=== PATIENT | female | born 1950 | race Hispanic/Latino ===

== ENCOUNTER 2017-10-01 02:34 | Inpatient (IN) | payer MEDICARE ==
[2017-10-01 02:34] VITALS: BMI 32.3
--- NOTE | 2017-10-01 03:59 | ED PDOC ---
HPI: Chest Pain Time Seen by Provider: 10/01/17 03:25 Chief Complaint (Nursing): Chest Pain Chief Complaint (Provider): Chest Pain History Per: Patient History/Exam Limitations: no limitations Onset/Duration Of Symptoms: Days (7 days ago) Current Symptoms Are (Timing): Still Present Additional Complaint(s): 67 y/o female with a past medical history of hypertension and hyperlipidemia, brought in by EMS, presents to the ED complaining of left-sided chest pain, with onset of one week. Patient denies of any vomiting, diarrhea, social or surgical history. PCP: Edy Meyer Past Medical History Reviewed: Historical Data, Nursing Documentation, Vital Signs Vital Signs: Last Vital Signs Temp 98.0 F 10/03/17 07:58 Pulse 76 10/03/17 07:58 Resp 18 10/03/17 07:58 BP 125/76 10/03/17 07:58 Pulse Ox 96 10/03/17 07:58 - Medical History PMH: HTN, Hypercholesterolemia, Hyperlipidemia Denies: Diabetes, Chronic Kidney Disease - Surgical History Surgical History: (x3) - Family History Family History: States: Unknown Family Hx - Home Medications Home Medications: Ambulatory Orders Medication Instructions Recorded Atorvastatin [Lipitor] 20 mg PO HS #30 tab 12/21/16 amLODIPine [Norvasc] 5 mg PO DAILY tab 12/21/16 Telmisartan [Micardis] 80 mg PO DAILY 10/01/17 - Allergies Allergies/Adverse Reactions: Allergies Allergy/AdvReac Type Severity Reaction Status Date / Time aspirin Allergy RASH Verified 10/01/17 02:44 codeine Allergy DIZZINESS Verified 10/01/17 02:44 doxycycline Allergy RASH Verified 10/01/17 02:44 VIPIN Risk Score for UA/NSTEMI - VIPIN Risk Score Age > 64: YES 3 or more CAD Risk Factors: NO Known CAD (Stenosis greater than 50%): NO Aspirin use in past 7 days: YES Severe Angina: NO EKG ST changes greater than 0.5mm: NO Positive Cardiac Marker: NO VIPIN Score: 2 Risk %: 8% Review of Systems ROS Statement: Except As Marked, All Systems Reviewed And Found Negative Constitutional: Negative for: Fever Gastrointestinal: Negative for: Vomiting, Diarrhea Physical Exam - Reviewed Nursing Documentation Reviewed: Yes Vital Signs Reviewed: Yes - Physical Exam Appears: Positive for: Non-toxic, No Acute Distress Head Exam: Positive for: ATRAUMATIC, NORMAL INSPECTION, NORMOCEPHALIC Skin: Positive for: Normal Color, Warm, DRY Eye Exam: Positive for: EOMI, Normal appearance, PERRL ENT: Positive for: Normal ENT Inspection Neck: Positive for: Normal, Painless ROM Cardiovascular/Chest: Positive for: Regular Rate, Rhythm. Negative for: Murmur Respiratory: Positive for: Normal Breath Sounds. Negative for: Respiratory Distress Gastrointestinal/Abdominal: Positive for: Normal Exam, Soft. Negative for: Tenderness Back: Positive for: Normal Inspection Extremity: Positive for: Normal ROM. Negative for: Pedal Edema, Deformity Neurologic/Psych: Positive for: Alert, Oriented. Negative for: Motor/Sensory Deficits - Laboratory Results Result Diagrams: 10/02/17 14:10 10/02/17 14:10 - ECG O2 Sat by Pulse Oximetry: 99 (RA) Pulse Ox Interpretation: Normal Medical Decision Making Medical Decision Making: Time: --03:47 Impression: --67 y/o female with chest pain Plan: --Labs --Chest X-ray --Troponin Reassess --5:55 provider is waiting on approval from Dr. Meyer to admit patient. Aspirin 325mg PO --7:00 Patient signed out to Dr. Peters pending reaching Dr. Meyer for admission. Scribe Attestation: Documented by Wade Moreau acting as a scribe for oJhn Mayo MD. Provider Attestation: All medical record entries made by the Scribe were at my direction and personally dictated by me. I have reviewed the chart and agree that the record accurately reflects my personal performance of the history, physical exam, medical decision making, and the department course for this patient. I have also personally directed, reviewed, and agree with the discharge instructions and disposition. Disposition - Clinical Impression Clinical Impression: Chest pain - Patient ED Disposition Is Patient to be Admitted: Transfer of Care Discussed With : Candido Peters Doctor Will See Patient In The: ED - Disposition Disposition: Transfer of Care Disposition Time: 07:00 Condition: FAIR Patient Signed Over To: Candido Peters
[2017-10-01 04:42] LABS: BASO # 0.1 K/uL (0.0-0.2); BASO % 1.3 % (0.0-2.0); EOS # 0.3 K/uL (0.0-0.7); EOS % 4.4 % (0.0-4.0); LYMPH % 29.4 % (20.0-40.0); MEAN CELL VOLUME 84.8 fl (81.0-99.0); MEAN CORPUSCULAR HEMOGLOBIN 28.4 pg (27.0-31.0); MEAN CORPUSCULAR HGB CONC 33.5 g/dL (33.0-37.0); MEAN PLATELET VOLUME 8.1 fl (7.2-11.7); MONO # 0.4 K/uL (0.0-0.8); MONO % 5.2 % (0.0-10.0); NEUT # 4.2 K/uL (1.8-7.0); NEUT % 59.7 % (50.0-75.0); NRBC % 0.1 % (0.0-0.0); RED CELL DISTRIBUTION WIDTH 13.4 % (11.5-14.5)
[2017-10-01 04:46] LABS: ALB/GLOB RATIO 1.1 (1.0-2.1); ALKALINE PHOSPHATASE 103 U/L (38-126); ALT/SGPT 37 U/L (9-52); AST/SGOT 26 U/L (14-36); BILIRUBIN,TOTAL 0.4 mg/dl (0.2-1.3); BLOOD UREA NITROGEN 13 mg/dl (7-17); CALCIUM 9.9 mg/dL (8.4-10.2); CARBON DIOXIDE 28 mmol/L (22-30); CHLORIDE 106 mmol/L (98-107); GFR AFRICAN-AMERICAN > 60; GLUCOSE,RANDOM 128 mg/dL (65-105); POTASSIUM 4.1 MMOL/L (3.6-5.0); SODIUM 141 mmol/l (132-148); TOTAL PROTEIN 9.2 G/DL (6.3-8.2)
--- NOTE | 2017-10-01 07:52 | ED PDOC ---
- Laboratory Results Result Diagrams: 10/01/17 04:33 10/01/17 04:33 - ECG O2 Sat by Pulse Oximetry: 99 (RA) Medical Decision Making Medical Decision Making: Patient was signed out to me by Dr. Mayo at 7:00AM. Pending call back from Dr. Meyer. Progress note: Case discussed with Dr. Meyer who agrees upon admission for telemetry observation to rule out ACS. Scribe Attestation: Documented by Leticia Washington, acting as a scribe for Candido Peters MD Provider Scribe Attestation: All medical record entries made by the Scribe were at my direction and personally dictated by me. I have reviewed the chart and agree that the record accurately reflects my personal performance of the history, physical exam, medical decision making, and the department course for this patient. I have also personally directed, reviewed, and agree with the discharge instructions and disposition. Disposition Counseled Patient/Family Regarding: Studies Performed, Diagnosis - Clinical Impression Clinical Impression: Chest pain - POA Present On Arrival: None Core Measure Indicators: Chest Pain - Disposition Disposition: Hospitalized as Observation Patient Disposition Time: 07:30 Condition: FAIR
--- NOTE | 2017-10-01 09:05 | RAD ---
HISTORY: chest pain COMPARISON: 12/20/2016. FINDINGS: LUNGS: No active pulmonary disease. PLEURA: No significant pleural effusion identified, no pneumothorax apparent. CARDIOVASCULAR: No radiographic findings to suggest acute or significant cardiovascular disease. OSSEOUS STRUCTURES: No significant abnormalities. VISUALIZED UPPER ABDOMEN: Normal. OTHER FINDINGS: None. IMPRESSION: No active disease. No significant interval change compared to the prior examination(s).
[2017-10-01] MEDS ORDERED: Patient's Own Med (Telmisartan [Micardis] 80 mg) PO SCH (13:30)
--- NOTE | 2017-10-01 14:24 | CP.PCM.HP ---
History of Present Illness - History of Present Illness History of Present Illness: 67 y/o female Bangladeshi speaking with a past medical history of hypertension and hyperlipidemia, brought in by EMS, presents to the ED complaining of left-sided chest pain, with sudden onset the day of admission. The pain is sharp, precordial with no irradiation. No V/N no abdominal pain. Present on Admission - Present on Admission Any Indicators Present on Admission: No Review of Systems - Constitutional Constitutional: As Per HPI - EENT Eyes: As Per HPI - Cardiovascular Cardiovascular: As Per HPI - Respiratory Respiratory: As Per HPI - Gastrointestinal Gastrointestinal: As Per HPI - Musculoskeletal Musculoskeletal: As Per HPI - Integumentary Integumentary: As Per HPI - Neurological Neurological: As Per HPI - Psychiatric Psychiatric: As Per HPI Past Patient History - Past Medical History & Family History Past Medical History?: Yes - Past Social History Smoking Status: Former Smoker - CARDIAC Hx Cardiac Disorders: Yes Hx Hypercholesterolemia: Yes Hx Hypertension: Yes Other/Comment: hyperlipidemia - PULMONARY Hx Respiratory Disorders: No - NEUROLOGICAL Hx Neurological Disorder: No - HEENT Hx HEENT Problems: No - RENAL Hx Chronic Kidney Disease: No - ENDOCRINE/METABOLIC Hx Endocrine Disorders: No - HEMATOLOGICAL/ONCOLOGICAL Hx Blood Disorders: No - INTEGUMENTARY Hx Dermatological Problems: No - MUSCULOSKELETAL/RHEUMATOLOGICAL Hx Falls: No - GASTROINTESTINAL Hx Gastrointestinal Disorders: No - GENITOURINARY/GYNECOLOGICAL Hx Genitourinary Disorders: No - PSYCHIATRIC Hx Psychophysiologic Disorder: No Hx Substance Use: No - SURGICAL HISTORY Hx Surgeries: Yes Hx Section: Yes (x3) Other/Comment: Root canal surgery - ANESTHESIA Hx Anesthesia: Yes Hx Anesthesia Reactions: No Hx Malignant Hyperthermia: No Has any member of the family had a problem w/ anesthesia?: No Meds Allergies/Adverse Reactions: Allergies Allergy/AdvReac Type Severity Reaction Status Date / Time aspirin Allergy RASH Verified 10/01/17 02:44 codeine Allergy DIZZINESS Verified 10/01/17 02:44 doxycycline Allergy RASH Verified 10/01/17 02:44 Physical Exam - Constitutional Appears: Non-toxic - Head Exam Head Exam: ATRAUMATIC, NORMAL INSPECTION, NORMOCEPHALIC - Eye Exam Eye Exam: Normal appearance Pupil Exam: PERRL - ENT Exam ENT Exam: Mucous Membranes Moist - Neck Exam Neck exam: Positive for: Full Rom, Normal Inspection - Respiratory Exam Respiratory Exam: Clear to Auscultation Bilateral - Cardiovascular Exam Cardiovascular Exam: REGULAR RHYTHM, +S1, +S2 - GI/Abdominal Exam GI & Abdominal Exam: Normal Bowel Sounds - Back Exam Back exam: NORMAL INSPECTION - Neurological Exam Neurological exam: Alert, CN II-XII Intact, Normal Gait, Oriented x3, Reflexes Normal - Psychiatric Exam Psychiatric exam: Normal Affect - Skin Skin Exam: Normal Color Results - Vital Signs Recent Vital Signs: Last Vital Signs Temp 97.9 F 10/01/17 12:09 Pulse 79 10/01/17 12:09 Resp 18 10/01/17 12:09 BP 133/85 10/01/17 12:09 Pulse Ox 96 10/01/17 12:09 - Labs Result Diagrams: 10/01/17 04:33 10/01/17 04:33 Labs: Laboratory Results - last 24 hr 10/01/17 10/01/17 04:33 04:33 WBC 7.0 RBC 5.07 Hgb 14.4 Hct 43.0 MCV 84.8 MCH 28.4 MCHC 33.5 RDW 13.4 Plt Count 354 MPV 8.1 Neut % (Auto) 59.7 Lymph % (Auto) 29.4 Shelby % (Auto) 5.2 Eos % (Auto) 4.4 H Baso % (Auto) 1.3 Neut # 4.2 Lymph # 2.0 Shelby # 0.4 Eos # 0.3 Baso # 0.1 Sodium 141 Potassium 4.1 Chloride 106 Carbon Dioxide 28 Anion Gap 11 BUN 13 Creatinine 0.6 L Est GFR ( Amer) > 60 Est GFR (Non-Af Amer) > 60 Random Glucose 128 H Calcium 9.9 Total Bilirubin 0.4 AST 26 ALT 37 Alkaline Phosphatase 103 Troponin I < 0.0120 Total Protein 9.2 H Albumin 4.8 Globulin 4.3 H Albumin/Globulin Ratio 1.1 Assessment & Plan (1) Costochondritis Status: Acute (2) Chest pain Status: Acute (3) Hypercholesteremia Status: Chronic (4) Hypertensive cardiovascular disease Status: Chronic - Assessment and Plan (Free Text) Plan: As per orders Patient with cardiac risk factor will follow w/u and cardiac consult.
--- NOTE | 2017-10-01 15:09 | CP.PCM.CON ---
History of Present Illness - History of Present Illness History of Present Illness: Consultation for evaluation of chest pain HPI: Review of Systems - Review of Systems Systems not reviewed;Unavailable: Acuity of Condition - Constitutional Constitutional: As Per HPI - EENT Eyes: As Per HPI Ears: As Per HPI Nose/Mouth/Throat: As Per HPI - Breasts Breasts: As Per HPI - Cardiovascular Cardiovascular: As Per HPI, Chest Pain - Respiratory Respiratory: As Per HPI - Gastrointestinal Gastrointestinal: As Per HPI - Genitourinary Genitourinary: As Per HPI - Reproductive: Female Reproductive:Female: As Per HPI - Menstruation Menstruation: As Per HPI - Musculoskeletal Musculoskeletal: As Per HPI - Integumentary Integumentary: As Per HPI - Neurological Neurological: As Per HPI - Psychiatric Psychiatric: As Per HPI - Endocrine Endocrine: As Per HPI - Hematologic/Lymphatic Hematologic: As Per HPI Past Patient History - Past Medical History & Family History Past Medical History?: Yes - Past Social History Smoking Status: Former Smoker - CARDIAC Hx Cardiac Disorders: Yes Hx Hypercholesterolemia: Yes Hx Hypertension: Yes Other/Comment: hyperlipidemia - PULMONARY Hx Respiratory Disorders: No - NEUROLOGICAL Hx Neurological Disorder: No - HEENT Hx HEENT Problems: No - RENAL Hx Chronic Kidney Disease: No - ENDOCRINE/METABOLIC Hx Endocrine Disorders: No - HEMATOLOGICAL/ONCOLOGICAL Hx Blood Disorders: No - INTEGUMENTARY Hx Dermatological Problems: No - MUSCULOSKELETAL/RHEUMATOLOGICAL Hx Falls: No - GASTROINTESTINAL Hx Gastrointestinal Disorders: No - GENITOURINARY/GYNECOLOGICAL Hx Genitourinary Disorders: No - PSYCHIATRIC Hx Psychophysiologic Disorder: No Hx Substance Use: No - SURGICAL HISTORY Hx Surgeries: Yes Hx Section: Yes (x3) Other/Comment: Root canal surgery - ANESTHESIA Hx Anesthesia: Yes Hx Anesthesia Reactions: No Hx Malignant Hyperthermia: No Has any member of the family had a problem w/ anesthesia?: No Meds Allergies/Adverse Reactions: Allergies Allergy/AdvReac Type Severity Reaction Status Date / Time aspirin Allergy RASH Verified 10/01/17 02:44 codeine Allergy DIZZINESS Verified 10/01/17 02:44 doxycycline Allergy RASH Verified 10/01/17 02:44 - Medications Medications: Current Medications Amlodipine Besylate (Norvasc) 5 mg PO DAILY [facility] Last Admin: 10/01/17 15:03 Dose: 5 mg Atorvastatin Calcium (Lipitor) 20 mg PO [facility] Home Med (Telmisartan [Micardis]) 80 mg PO DAILY [facility] Last Admin: 10/01/17 15:02 Dose: Not Given Losartan Potassium (Cozaar) 100 mg PO DAILY [facility] Physical Exam - Constitutional Appears: Well - Head Exam Head Exam: ATRAUMATIC, NORMAL INSPECTION, NORMOCEPHALIC - Eye Exam Eye Exam: EOMI, Normal appearance, PERRL Pupil Exam: NORMAL ACCOMODATION, PERRL - ENT Exam ENT Exam: Mucous Membranes Moist, Normal Exam - Neck Exam Neck exam: Positive for: Normal Inspection - Respiratory Exam Respiratory Exam: Clear to Auscultation Bilateral, NORMAL BREATHING PATTERN - Cardiovascular Exam Cardiovascular Exam: REGULAR RHYTHM, RRR, +S1, +S2, Systolic Murmur - GI/Abdominal Exam GI & Abdominal Exam: Normal Bowel Sounds, Soft. absent: Tenderness - Extremities Exam Extremities exam: Positive for: normal inspection - Back Exam Back exam: NORMAL INSPECTION - Neurological Exam Neurological exam: Alert, CN II-XII Intact, Normal Gait, Oriented x3, Reflexes Normal - Psychiatric Exam Psychiatric exam: Normal Affect, Normal Mood - Skin Skin Exam: Dry, Intact, Normal Color, Warm Results - Vital Signs Recent Vital Signs: Last Vital Signs Temp 97.9 F 10/01/17 12:09 Pulse 79 10/01/17 15:03 Resp 18 10/01/17 12:09 BP 133/85 10/01/17 15:03 Pulse Ox 96 10/01/17 12:09 - Labs Result Diagrams: 10/01/17 04:33 10/01/17 04:33 Labs: Laboratory Results - last 24 hr 10/01/17 10/01/17 04:33 04:33 WBC 7.0 RBC 5.07 Hgb 14.4 Hct 43.0 MCV 84.8 MCH 28.4 MCHC 33.5 RDW 13.4 Plt Count 354 MPV 8.1 Neut % (Auto) 59.7 Lymph % (Auto) 29.4 [place]rill % (Auto) 5.2 Eos % (Auto) 4.4 H Baso % (Auto) 1.3 Neut # 4.2 Lymph # 2.0 [place]rill # 0.4 Eos # 0.3 Baso # 0.1 Sodium 141 Potassium 4.1 Chloride 106 Carbon Dioxide 28 Anion Gap 11 BUN 13 Creatinine 0.6 L Est GFR ( Amer) > 60 Est GFR (Non-Af Amer) > 60 Random Glucose 128 H Calcium 9.9 Total Bilirubin 0.4 AST 26 ALT 37 Alkaline Phosphatase 103 Troponin I < 0.0120 Total Protein 9.2 H Albumin 4.8 Globulin 4.3 H Albumin/Globulin Ratio 1.1 Assessment & Plan (1) Chest pain Assessment and Plan: SHERYL plan for stress test in am if enzyes -ve x 3 monitor on telemtry Status: Acute (2) Costochondritis Status: Acute (3) Hypercholesteremia Assessment and Plan: cont lipitor Status: Chronic (4) Hypertensive cardiovascular disease Assessment and Plan: cont with norvasc and losartan Status: Chronic
[2017-10-01 15:34] LABS: BASO # 0.1 K/uL (0.0-0.2); BASO % 0.9 % (0.0-2.0); EOS # 0.3 K/uL (0.0-0.7); EOS % 4.1 % (0.0-4.0); HEMATOCRIT 41.2 % (34.0-47.0); LYMPH # 2.6 K/uL (1.0-4.3); LYMPH % 36.1 % (20.0-40.0); MEAN CELL VOLUME 84.9 fl (81.0-99.0); MEAN CORPUSCULAR HEMOGLOBIN 27.9 pg (27.0-31.0); MEAN CORPUSCULAR HGB CONC 32.9 g/dL (33.0-37.0); MONO # 0.5 K/uL (0.0-0.8); NEUT # 3.8 K/uL (1.8-7.0); NEUT % 51.9 % (50.0-75.0); RED CELL DISTRIBUTION WIDTH 13.7 % (11.5-14.5); WHITE BLOOD COUNT 7.3 K/uL (4.8-10.8)
[2017-10-01 15:45] LABS: BLOOD UREA NITROGEN 12 mg/dl (7-17); CALCIUM 9.7 mg/dL (8.4-10.2); CARBON DIOXIDE 27 mmol/L (22-30); CHLORIDE 103 mmol/L (98-107); GFR AFRICAN-AMERICAN > 60; GLUCOSE,RANDOM 119 mg/dL (65-105); SODIUM 139 mmol/l (132-148)
[2017-10-01 16:14] LABS: THYROID STIMULATING HORMONE 2.36 mIU/ML (0.46-4.68)
--- NOTE | 2017-10-01 16:46 | CARD ---
APPROVED REPORT EXAM: Two-dimensional and M-mode echocardiogram with Doppler and color Doppler. Other Information Quality : GoodRhythm : NSR INDICATION Chest Pain 2D DIMENSIONS IVSd1.35 (0.7-1.1cm)LVDd3.34 (3.9-5.9cm) LVOT Diameter2.04 (1.8-2.4cm)PWd0.79 (0.7-1.1cm) IVSs1.38 (0.8-1.2cm)LVDs2.42 (2.5-4.0cm) FS (%) 27.7 %PWs1.24 (0.8-1.2cm) LVEF (%)55.0 (>50%) M-Mode DIMENSIONS Left Atrium (MM)3.17 (2.5-4.0cm)IVSd1.00 (0.7-1.1cm) Aortic Root2.73 (2.2-3.7cm)LVDd4.58 (4.0-5.6cm) Aortic Cusp Exc.1.57 (1.5-2.0cm)PWd1.08 (0.7-1.1cm) IVSs1.44 cmFS (%) 47 % LVDs2.42 (2.0-3.8cm)PWs1.54 cm Mitral Valve MV E Wtorpvtg03.1cm/sMV DECEL [id number] A Wnozypby04.4cm/s MV YBD15jaV/A ratio0.9MVA (PHT)4.36cm2 TDI Lateral E' Peak V8.96cm/sMedial E' Peak V6.93cm/sE/Lateral E'9.4 E/Medial E'12.1 Pulmonary Valve PV Peak Bkoubllb303.6cm/s LEFT VENTRICLE The left ventricle is normal size. There is mild concentric left ventricular hypertrophy. The left ventricular function is normal. The left ventricular ejection fraction is within the normal range. There is normal LV segmental wall motion. Transmitral Doppler flow pattern is Grade I-abnormal relaxation pattern. RIGHT VENTRICLE The right ventricle is normal size. There is normal right ventricular wall thickness. The right ventricular systolic function is normal. ATRIA The left atrium size is normal. The right atrium size is normal. AORTIC VALVE The aortic valve is mildly thickened. No aortic regurgitation is present. There is no aortic valvular stenosis. MITRAL VALVE The mitral valve is mildly thickened. There is no mitral valve stenosis. There is no mitral valve regurgitation noted. TRICUSPID VALVE The tricuspid valve is normal in structure. There is no tricuspid valve regurgitation noted. PULMONIC VALVE The pulmonary valve is normal in structure. There is trace pulmonic valvular regurgitation. GREAT VESSELS The aortic root is normal in size. The IVC is normal in size and collapses >50% with inspiration. PERICARDIAL EFFUSION The pericardium appears normal. <Conclusion> The left ventricle is normal size. There is mild concentric left ventricular hypertrophy. The left ventricular function is normal. The left ventricular ejection fraction is within the normal range. There is normal LV segmental wall motion. Transmitral Doppler flow pattern is Grade I-abnormal relaxation pattern.
--- NOTE | 2017-10-01 17:39 | CARD ---
APPROVED REPORT EKG Measurement Heart [id number] MT 166P46 [id number] <Conclusion> Normal sinus rhythm Possible Left atrial enlargement Borderline ECG
--- NOTE | 2017-10-02 08:06 | CARD ---
APPROVED REPORT EKG Measurement Heart [id number] CT 148P49 [id number] <Conclusion> Normal sinus rhythm Normal ECG
[2017-10-02 08:33] LABS: TOTAL PROTEIN, SERUM 7.7 g/dL (6.1-8.1)
--- NOTE | 2017-10-02 12:16 | CARD ---
APPROVED REPORT EKG Measurement Heart [id number] CT 152P43 [id number] <Conclusion> Normal sinus rhythm Normal ECG
--- NOTE | 2017-10-02 12:30 | PCM.RRT ---
<Jazz Lux - Last Filed: 10/02/17 12:21> EXTENSION EDGER Nurse Assessment - Situation EXTENSION EDGER Reason for Call: Tachycardia - IV IV Inserted during EXTENSION EDGER?: No I.Reason for EXTENSION EDGER - A) Acute Change in Patient: Subjective: EXTENSION EDGER Start Time: 12:07 EXTENSION EDGER Location: Cardiac Stress Test Room EXTENSION EDGER Reason: Tachycardia S: Pt is a 67 y/o female admitted to the hospital for chest pain, and upon completing a stress test was noted by RN to have tachycardia with HR in 160's. Pt denied chest pain or SOB. Stated she felt fine. Ob: HR was 120's on my arrival. Remainder of vital signs wnl. Patient was seen lying in bed comfortably. No acute distress noted. CV and pulmonary exam unremarkable. EKG x2 showed Sinus Tachycardia HR was noted to trend down to 110's spontaneously Patient was transferred to In Patient, Telemetry. Will continue to monitor vital signs. EXTENSION EDGER Attending MD: Dr. Mayo <John Mayo - Last Filed: 10/03/17 08:14> Plan - Assessment of Findings&Treatment Plan I am not involved in pt care on the floor. just responded to EXTENSION EDGER and then relayed findings to pts pcp Dr Meyer who admitted the pt.
[2017-10-02] MEDS ORDERED: Metoprolol 1 mg/ml Inj IVP ONE (13:19)
[2017-10-02] MEDS: Enoxaparin 40 mg Syringe SC SCH (13:30)
--- NOTE | 2017-10-02 13:59 | CP.PCM.PN ---
Subjective - Date & Time of Evaluation Date of Evaluation: 10/02/17 Time of Evaluation: 14:01 - Subjective Subjective: Patient anxious with symptomatic tachycardia 130/140. Wait for w/u start iv beta blockers. Will follow with cardiology. The nature of the symptomatic tachy arrhythmia is unknown will need further investigation will regularly admit the patient. Objective - Vital Signs/Intake and Output Vital Signs (last 24 hours): Temp Pulse Resp BP Pulse Ox 98.2 F 140 H 18 153/92 H 98 10/02/17 12:28 10/02/17 13:45 10/02/17 12:28 10/02/17 13:27 10/02/17 12:28 - Medications Medications: Current Medications Amlodipine Besylate (Norvasc) 5 mg PO DAILY [facility] Last Admin: 10/02/17 12:29 Dose: 5 mg Atorvastatin Calcium (Lipitor) 20 mg PO HS [facility] Last Admin: 10/01/17 21:13 Dose: 20 mg Enoxaparin Sodium (Lovenox) 40 mg SC DAILY [facility] PRN Reason: Protocol Last Admin: 10/02/17 13:30 Dose: 40 mg Home Med (Telmisartan [Micardis]) 80 mg PO DAILY [facility] Last Admin: 10/01/17 15:02 Dose: Not Given Losartan Potassium (Cozaar) 100 mg PO DAILY [facility] Last Admin: 10/02/17 12:28 Dose: 100 mg - Labs Labs: 10/01/17 15:29 10/01/17 15:29 - Constitutional Appears: Non-toxic - Head Exam Head Exam: ATRAUMATIC, NORMAL INSPECTION, NORMOCEPHALIC - Eye Exam Eye Exam: Normal appearance - ENT Exam ENT Exam: Mucous Membranes Moist - Neck Exam Neck Exam: Full ROM - Respiratory Exam Respiratory Exam: Clear to Ausculation Bilateral - Cardiovascular Exam Cardiovascular Exam: Tachycardia, REGULAR RHYTHM, +S1, +S2 - GI/Abdominal Exam GI & Abdominal Exam: Soft, Normal Bowel Sounds - Extremities Exam Extremities Exam: Normal Inspection - Neurological Exam Neurological Exam: Alert, Awake, CN II-XII Intact, Normal Gait, Oriented x3 - Psychiatric Exam Psychiatric exam: Anxious - Skin Skin Exam: Normal Color Assessment and Plan (1) Costochondritis Status: Acute (2) Chest pain Status: Acute (3) Hypercholesteremia Status: Chronic (4) Hypertensive cardiovascular disease Status: Chronic (5) Tachyarrhythmia Status: Acute - Assessment and Plan (Free Text) Plan: As per orders.
[2017-10-02 14:15] LABS: BASO # 0.1 K/uL (0.0-0.2); EOS # 0.3 K/uL (0.0-0.7); EOS % 3.7 % (0.0-4.0); HEMATOCRIT 41.6 % (34.0-47.0); LYMPH # 2.3 K/uL (1.0-4.3); LYMPH % 29.4 % (20.0-40.0); MEAN CELL VOLUME 84.6 fl (81.0-99.0); MEAN PLATELET VOLUME 7.8 fl (7.2-11.7); MONO # 0.5 K/uL (0.0-0.8); MONO % 6.1 % (0.0-10.0); NEUT # 4.7 K/uL (1.8-7.0); NEUT % 59.8 % (50.0-75.0); NRBC % 0.1 % (0.0-0.0); RED CELL DISTRIBUTION WIDTH 13.3 % (11.5-14.5); WHITE BLOOD COUNT 7.9 K/uL (4.8-10.8)
[2017-10-02 14:45] LABS: PARTIAL THROMBOPLASTIN TIME 38.5 Seconds (25.6-37.1)
[2017-10-02 14:48] LABS: BLOOD UREA NITROGEN 17 mg/dl (7-17); CALCIUM 9.4 mg/dL (8.4-10.2); CARBON DIOXIDE 26 mmol/L (22-30); CHLORIDE 104 mmol/L (98-107); GFR AFRICAN-AMERICAN > 60; GLUCOSE,RANDOM 123 mg/dL (65-105); MAGNESIUM 2.2 MG/DL (1.6-2.3); POTASSIUM 4.1 MMOL/L (3.6-5.0); SODIUM 141 mmol/l (132-148); T4 10.1 ug/dl (5.5-11.0)
[2017-10-02 15:00] LABS: THYROID STIMULATING HORMONE 1.15 mIU/ML (0.46-4.68)
--- NOTE | 2017-10-03 01:13 | CP.PCM.PN ---
Subjective - Date & Time of Evaluation Date of Evaluation: 10/02/17 Time of Evaluation: 12:00 - Subjective Subjective: s/p stress test today Objective - Vital Signs/Intake and Output Vital Signs (last 24 hours): Temp Pulse Resp BP Pulse Ox 97.3 F L 87 18 100/63 99 10/03/17 00:12 10/03/17 00:12 10/03/17 00:12 10/03/17 00:12 10/03/17 00:12 Intake and Output: 10/02/17 10/03/17 18:59 06:59 Intake Total 1200 Balance 1200 - Medications Medications: Current Medications Amlodipine Besylate (Norvasc) 5 mg PO DAILY [facility] Last Admin: 10/02/17 12:29 Dose: 5 mg Atorvastatin Calcium (Lipitor) 20 mg PO HS [facility] Last Admin: 10/02/17 21:34 Dose: 20 mg Enoxaparin Sodium (Lovenox) 40 mg SC DAILY [facility] PRN Reason: Protocol Last Admin: 10/02/17 13:30 Dose: 40 mg Home Med (Telmisartan [Micardis]) 80 mg PO DAILY [facility] Last Admin: 10/01/17 15:02 Dose: Not Given Losartan Potassium (Cozaar) 100 mg PO DAILY [facility] Last Admin: 10/02/17 12:28 Dose: 100 mg - Labs Labs: 10/02/17 14:10 10/02/17 14:10 PT 11.4 Seconds (9.8-13.1) 10/02/17 14:33 INR 1.0 (0.9-1.2) 10/02/17 14:33 APTT 38.5 Seconds (25.6-37.1) H 10/02/17 14:33 - Constitutional Appears: Well - Head Exam Head Exam: ATRAUMATIC, NORMAL INSPECTION, NORMOCEPHALIC - Eye Exam Eye Exam: EOMI, Normal appearance, PERRL Pupil Exam: NORMAL ACCOMODATION, PERRL - ENT Exam ENT Exam: Mucous Membranes Moist, Normal Exam - Neck Exam Neck Exam: Full ROM, Normal Inspection. absent: Lymphadenopathy - Respiratory Exam Respiratory Exam: Clear to Ausculation Bilateral, NORMAL BREATHING PATTERN - Cardiovascular Exam Cardiovascular Exam: REGULAR RHYTHM, +S1, +S2. absent: Murmur - GI/Abdominal Exam GI & Abdominal Exam: Soft, Normal Bowel Sounds. absent: Tenderness - Rectal Exam Rectal Exam: NORMAL INSPECTION - Exam Exam: Circumcision, NORMAL INSPECTION External exam: NORMAL EXTERNAL EXAM Speculum exam: NORMAL SPECULUM EXAM Bimanual exam: NORMAL BIMANUAL EXAM - Extremities Exam Extremities Exam: Full ROM, Normal Capillary Refill, Normal Inspection. absent : Joint Swelling, Pedal Edema - Back Exam Back Exam: NORMAL INSPECTION - Neurological Exam Neurological Exam: Alert, Awake, CN II-XII Intact, Normal Gait, Oriented x3 - Psychiatric Exam Psychiatric exam: Normal Affect, Normal Mood - Skin Skin Exam: Dry, Intact, Normal Color, Warm Assessment and Plan (1) Chest pain Status: Acute (2) Costochondritis Status: Acute (3) Hypercholesteremia Status: Chronic (4) Hypertensive cardiovascular disease Status: Chronic
[2017-10-03] MEDS: Enoxaparin 40 mg Syringe SC SCH (08:48)
--- NOTE | 2017-10-03 11:41 | CP.PCM.DIS ---
Provider - Provider Date of Admission: 10/02/17 14:33 Attending physician: Edy Meyer MD Primary care physician: Edy Meyer MD Time Spent in preparation of Discharge (in minutes): 30 Diagnosis - Discharge Diagnosis (1) Costochondritis Status: Acute (2) Chest pain Status: Acute (3) Hypercholesteremia Status: Chronic (4) Hypertensive cardiovascular disease Status: Chronic (5) Tachyarrhythmia Status: Acute Hospital Course - Lab Results Lab Results: Most Recent Lab Values WBC 7.9 K/uL (4.8-10.8) 10/02/17 14:10 RBC 4.92 Mil/uL (3.80-5.20) 10/02/17 14:10 Hgb 13.7 g/dL (12.0-16.0) 10/02/17 14:10 Hct 41.6 % (34.0-47.0) 10/02/17 14:10 MCV 84.6 fl (81.0-99.0) 10/02/17 14:10 MCH 28.0 pg (27.0-31.0) 10/02/17 14:10 MCHC 33.0 g/dL (33.0-37.0) 10/02/17 14:10 RDW 13.3 % (11.5-14.5) 10/02/17 14:10 Plt Count 380 K/uL (130-400) 10/02/17 14:10 MPV 7.8 fl (7.2-11.7) 10/02/17 14:10 Neut % (Auto) 59.8 % (50.0-75.0) 10/02/17 14:10 Lymph % (Auto) 29.4 % (20.0-40.0) 10/02/17 14:10 [place] % (Auto) 6.1 % (0.0-10.0) 10/02/17 14:10 Eos % (Auto) 3.7 % (0.0-4.0) 10/02/17 14:10 Baso % (Auto) 1.0 % (0.0-2.0) 10/02/17 14:10 Neut # 4.7 K/uL (1.8-7.0) 10/02/17 14:10 Lymph # 2.3 K/uL (1.0-4.3) 10/02/17 14:10 [place] # 0.5 K/uL (0.0-0.8) 10/02/17 14:10 Eos # 0.3 K/uL (0.0-0.7) 10/02/17 14:10 Baso # 0.1 K/uL (0.0-0.2) 10/02/17 14:10 PT 11.4 Seconds (9.8-13.1) 10/02/17 14:33 INR 1.0 (0.9-1.2) 10/02/17 14:33 APTT 38.5 Seconds (25.6-37.1) H 10/02/17 14:33 D-Dimer, Quantitative 212 ng/mlDDU (0-230) 10/02/17 14:10 Sodium 141 mmol/l (132-148) 10/02/17 14:10 Potassium 4.1 MMOL/L (3.6-5.0) 10/02/17 14:10 Chloride 104 mmol/L (98-107) 10/02/17 14:10 Carbon Dioxide 26 mmol/L (22-30) 10/02/17 14:10 Anion Gap 15 (10-20) 10/02/17 14:10 BUN 17 mg/dl (7-17) 10/02/17 14:10 Creatinine 0.8 mg/dl (0.7-1.2) 10/02/17 14:10 Est GFR ( Amer) > 60 10/02/17 14:10 Est GFR (Non-Af Amer) > 60 10/02/17 14:10 Random Glucose 123 mg/dL (65-105) H 10/02/17 14:10 Calcium 9.4 mg/dL (8.4-10.2) 10/02/17 14:10 Magnesium 2.2 MG/DL (1.6-2.3) 10/02/17 14:10 Total Bilirubin 0.4 mg/dl (0.2-1.3) 10/01/17 04:33 AST 26 U/L (14-36) 10/01/17 04:33 ALT 37 U/L (9-52) 10/01/17 04:33 Alkaline Phosphatase 103 U/L (38-126) 10/01/17 04:33 Troponin I 0.0220 ng/mL (0.00-0.120) 10/02/17 14:10 Total Protein 9.2 G/DL (6.3-8.2) H 10/01/17 04:33 Total Protein (PEP) 7.7 g/dL (6.1-8.1) 10/01/17 15:29 Albumin 4.8 g/dL (3.5-5.0) 10/01/17 04:33 Globulin 4.3 gm/dL (2.2-3.9) H 10/01/17 04:33 Albumin/Globulin Ratio 1.1 (1.0-2.1) 10/01/17 04:33 Thyroxine (T4) 10.1 ug/dl (5.5-11.0) 10/02/17 14:10 Total T3 1.24 nmol/L (1.49-2.60) L 10/02/17 14:10 TSH 3rd Generation 1.15 mIU/ML (0.46-4.68) 10/02/17 14:10 - Hospital Course Hospital Course: 67 y/o female Georgian speaking with a past medical history of hypertension and hyperlipidemia, brought in by EMS, presents to the ED complaining of left-sided chest pain, with sudden onset the day of admission. The pain is sharp, precordial with no irradiation. No V/N no abdominal pain. During the hospitalization she had an episode of tachyarrhythmia.. Eventually she was cleared for dc by cardiology . At present comfortable. Discharge Exam - Head Exam Head Exam: ATRAUMATIC, NORMAL INSPECTION, NORMOCEPHALIC - Eye Exam Eye Exam: Normal appearance - ENT Exam ENT Exam: Normal Exam - Neck Exam Neck exam: Full Rom - Respiratory Exam Respiratory Exam: Clear to PA & Lateral - Cardiovascular Exam Cardiovascular Exam: REGULAR RHYTHM, +S1, +S2 - GI/Abdominal Exam GI & Abdominal Exam: Normal Bowel Sounds - Extremities Exam Extremities exam: normal inspection - Neurological Exam Neurological exam: Alert, CN II-XII Intact, Normal Gait, Oriented x3, Reflexes Normal - Psychiatric Exam Psychiatric exam: Normal Affect - Skin Skin Exam: Normal Color Discharge Plan - Follow Up Plan Condition: FAIR Disposition: HOME/ ROUTINE Referrals: Edy Meyer MD [Primary Care Provider] -
[2017-10-03 11:49] VITALS: O2SAT 98
--- NOTE | 2017-10-03 12:59 | PQF GENQUE ---
Dr. Meyer, 2 (two) queries: (1) DE ruled in or ruled out? (2) Etiology of the Chest Pain: if known after the work up is completed OR:Unable to determine OR: Other explanation of clinical findings Cardiology consult: Assessmen: (1) Chest pain:SHERYL plan for stress test in am if enzyes -ve x 3 monitor on telemtry Status: Acute (2) Costochondritis Status: Acute (3) Hypercholesteremia : cont lipitor Status: Chronic (4) Hypertensive cardiovascular disease: cont with norvasc and losartan Status: Chronic D/C Summary:Discharge Diagnosis : (1) Costochondritis Status: Acute (2) Chest pain Status: Acute (3) Hypercholesteremia Status: Chronic (4) Hypertensive cardiovascular disease Status: Chronic (5) Tachyarrhythmia Status: Acute --- PMH : of hypertension and hyperlipidemia , brought in by EMS, presents to the ED complaining of left-sided chest pain, with sudden onset the day of admission. The pain is sharp, precordial with no irradiation. No V/N no abdominal pain. During the hospitalization she had an episode of tachyarrhythmia Trop x 4: <0.0120 x 3 -> 0.0220 EKG: NSR: Possible Left atrial enlargement Borderline ECG EKG #2 and #3:NSR This form is a permanent part of the medical record Clarification of your documentation is requested to better reflect the severity of illness and intensity of treatment of your patient. Indicators present [X] Specify: [DE ruled out] [X] Specify: [Costocondritis] [] Specify: [] [] Specify: [] Location in the medical record that reflects the above clinical findings: [] Treatment Provided: [] PHYSICIAN'S RESPONSE Based on your medical judgment of the clinical indicators outlined above please clarify the following: [] Practitioner response [] If unable to determine, please check the box, sign and date. Present On Admission (POA) Indicator: [] Present at the time of admission [] Not present at the time of admission [] Clinically Undetermined In responding to this query, please exercise your independent professional judgment. The fact that a question is asked does not imply that any particular answer is desired or expected. Thank you for your clarification on this documentation. If you have any questions please call. * Thank you, Keysha Montalvo RN ext. #[phone] MTDD
[2017-10-03 16:13] VITALS: BP 122/73; PULSE 83; RESP 16; TEMP 98.2
--- NOTE | 2017-10-03 19:25 | CARD ---
APPROVED REPORT EKG Measurement Heart [id number] <Conclusion> Sinus tachycardia Possible Left atrial enlargement Nonspecific ST and T wave abnormality Abnormal ECG
[2017-10-03 20:53] LABS: BETA 1 GLOBULIN 0.5 g/dL (0.4-0.6); BETA 2 GLOBULIN 0.5 g/dL (0.2-0.5); GAMMA GLOBULIN 1.3 g/dL (0.8-1.7)
--- NOTE | 2017-10-04 05:38 | CP.PCM.PN ---
Subjective - Date & Time of Evaluation Date of Evaluation: 10/03/17 Time of Evaluation: 15:00 - Subjective Subjective: stress test normal feeling fine Objective - Vital Signs/Intake and Output Vital Signs (last 24 hours): Temp Pulse Resp BP Pulse Ox 98.2 F 83 16 122/73 98 10/03/17 16:12 10/03/17 16:12 10/03/17 16:12 10/03/17 16:12 10/03/17 16:12 - Labs Labs: 10/02/17 14:10 10/02/17 14:10 PT 11.4 Seconds (9.8-13.1) 10/02/17 14:33 INR 1.0 (0.9-1.2) 10/02/17 14:33 APTT 38.5 Seconds (25.6-37.1) H 10/02/17 14:33 - Constitutional Appears: Well - Head Exam Head Exam: ATRAUMATIC, NORMAL INSPECTION, NORMOCEPHALIC - Eye Exam Eye Exam: EOMI, Normal appearance, PERRL Pupil Exam: NORMAL ACCOMODATION, PERRL - ENT Exam ENT Exam: Mucous Membranes Moist, Normal Exam - Neck Exam Neck Exam: Full ROM, Normal Inspection. absent: Lymphadenopathy - Respiratory Exam Respiratory Exam: Clear to Ausculation Bilateral, NORMAL BREATHING PATTERN - Cardiovascular Exam Cardiovascular Exam: REGULAR RHYTHM, +S1, +S2. absent: Murmur - GI/Abdominal Exam GI & Abdominal Exam: Soft, Normal Bowel Sounds. absent: Tenderness - Extremities Exam Extremities Exam: Full ROM, Normal Capillary Refill, Normal Inspection. absent : Joint Swelling, Pedal Edema - Back Exam Back Exam: NORMAL INSPECTION - Neurological Exam Neurological Exam: Alert, Awake, CN II-XII Intact, Normal Gait, Oriented x3 - Psychiatric Exam Psychiatric exam: Normal Affect, Normal Mood - Skin Skin Exam: Dry, Intact, Normal Color, Warm Assessment and Plan (1) Chest pain Status: Acute (2) Costochondritis Status: Acute (3) Hypercholesteremia Status: Chronic (4) Hypertensive cardiovascular disease Status: Chronic
== END 2017-10-03 16:00 | disposition home or self-care (01) | DRG 206 ==
LOC: H.ER 02:34 → H.ERHOLD 07:22 → H.TEL 08:51 → OBSVTOIN 10-02 14:33
PROVIDERS: ADMIT Internal Medicine; ATTEND Internal Medicine
DX: M94.0 Chondrocostal junction syndrome [Tietze] (principal); I11.9 Hypertensive heart disease without heart failure; E78.00 Pure hypercholesterolemia, unspecified; E78.5 Hyperlipidemia, unspecified; Z87.891 Personal history of nicotine dependence; Z88.6 Allergy status to analgesic agent; R00.0 Tachycardia, unspecified